=== PATIENT | female | born 1950 | race Caucasian/White ===

== ENCOUNTER 2024-01-22 05:28 | Observation (INO) | payer MEDICARE, MEDICAID ==
[2024-01-20 12:06] LABS: BASOPHILS # (AUTO) 0.1 X10'3 (0-0.2); EOSINOPHILS % (AUTO) 0.2 % (0-6); LYMPHOCYTES # (AUTO) 1.5 X10'3 (1.1-4.8); LYMPHOCYTES % (AUTO) 24.8 % (21-51); MEAN CORPUSCULAR HEMOGLOBIN 30.1 PG (27.0-31.0); MEAN CORPUSCULAR HGB CONC 33.6 g/dL (33.0-36.5); MEAN CORPUSCULAR VOLUME 89.5 FL (78-98); MEAN PLATELET VOLUME 6.9 FL (7.4-10.4); MONOCYTES # (AUTO) 0.5 X10'3 (0-0.9); MONOCYTES % (AUTO) 8.2 % (2-12); NEUTROPHILS # (AUTO) 3.9 X10'3 (1.8-7.7); NEUTROPHILS % (AUTO) 65.8 % (42-75); PRE OP HEMATOCRIT 41.5 % (35.0-45.0); PRE OP PLATELET COUNT 251 X10'3 (140-440); PRE OP WHITE BLOOD COUNT 5.9 10'3 (4.8-10.8); RED BLOOD COUNT 4.64 X10'6 (4.20-5.60); RED CELL DISTRIBUTION WIDTH 13.9 % (11.5-14.5)
[2024-01-20 12:20] LABS: PRE OP INR 0.9 INR; PRE OP PROTIME 10.2 SECONDS (9.0-12.0)
[2024-01-20 12:23] LABS: ALBUMIN 3.8 G/DL (3.4-5.0); ALBUMIN/GLOBULIN RATIO 1.1 (1.1-1.5); ALKALINE PHOSPHATASE 80 IU/L (46-116); BLOOD UREA NITROGEN 17 MG/DL (7-18); BUN/CREATININE RATIO 18.5 (10.0-20.0); CALCIUM 9.5 MG/DL (8.5-10.1); CHLORIDE 104 MMOL/L (99-107); CREATININE 0.92 MG/DL (0.40-0.90); PRE OP ALT 30 U/L (30-65); PRE OP ANION GAP 14 (8-16); PRE OP AST 18 U/L (10-37); PRE OP BILIRUB, TOTAL 0.3 MG/DL (0.0-1.0); PRE OP GLUCOSE 117 MG/DL (70-104); PRE OP POTASSIUM 4.1 MMOL/L (3.4-5.1); PRE OP SODIUM 142 MMOL/L (135-145); TOTAL CARBON DIOXIDE 24.5 MMOL/L (24-32); TOTAL PROTEIN 7.4 G/DL (6.4-8.2); eGFR 60 ML/MIN
[2024-01-22] VITALS (22 sets, daily range): BP systolic 102–152; BP diastolic 42–79; PULSE 71–86; RESP 11–22; TEMP 97.8–98.4; O2SAT 95–100
[~2024-01-22] VITALS: Ht 160 cm; Wt 65.4 kg
[~2024-01-22 05:28] MED LIST: ATOR10TA70 PO; LISI5TAB22 PO; METF-900 PO; MULT-1085 PO; UBID50TA3 PO
[2024-01-22] MEDS: famotidine 20mg tablet PO ONE (05:58)
[2024-01-22] MEDS: ringers solution, lacted 1,000 ML IV SCH ×3 (05:58→17:28)
[2024-01-22] MEDS: vancomycin/NS 1 GM in NS 250 ML IV ONE (05:58)
[2024-01-22] MEDS ORDERED: methylene blue (5mg/ml) 50mg/10ml ampul IV ONE (07:13)
[2024-01-22] MEDS ORDERED: BUPIVAcaine 0.5% inj/PF 30 ML ONE (07:18)
[2024-01-22] MEDS ORDERED: BUPIVACAINE liposomal/PF 13.3 MG/ML vial IM ONE (07:18)
[2024-01-22] MEDS ORDERED: midazolam 1 mg/ML 2ml injection ONE (07:22)
[2024-01-22] MEDS ORDERED: fentaNYL/PF 50MCG/1 ML 2ML syringe ONE (07:22)
[2024-01-22] MEDS ORDERED: acetaminophen 1,000mg/100ml IV 100 ML IV ONE (07:23)
[2024-01-22] MEDS ORDERED: propofol inj 20 ML IV ONE (07:23)
[2024-01-22] MEDS ORDERED: LIDOcaine 2% (20mg/ml) 5ml vial ONE (07:23)
[2024-01-22] MEDS ORDERED: ondansetron/PF 4mg/2ml inj ONE (07:23)
[2024-01-22] MEDS ORDERED: dexamethasone sod phosphate 4mg/ml inj. ONE (07:23)
[2024-01-22] MEDS ORDERED: enalaprilat dihydrate 2.5mg/2ml vial IV PRN (07:30)
[2024-01-22] MEDS ORDERED: morphine 4 MG/ML inj SYRINge IV PRN (07:30)
[2024-01-22] MEDS ORDERED: fentaNYL/PF 50MCG/1 ML 2ML syringe IV PRN ×2 (07:30)
[2024-01-22] MEDS ORDERED: labetalol 20mg/4ml (5mg/ml) syringe IV PRN (07:30)
[2024-01-22] MEDS ORDERED: sevoflurane 250ml liquid IH ONE (07:54)
[2024-01-22] MEDS: NORMAL SALINE IV ONE (08:00)
[2024-01-22] MEDS: GENTAMICIN IV ONE (08:00)
[2024-01-22] MEDS ORDERED: ePHEDrine 50MG/ML INJ. ONE (08:15)
[2024-01-22] MEDS: methylene blue (5mg/ml) 50mg/10ml ampul IV ONE (08:46)
[2024-01-22] MEDS ORDERED: labetalol 20mg/4ml (5mg/ml) syringe IV ONE (08:47)
[2024-01-22] MEDS: morphine 2 MG/ML inj. syringe IV PRN (11:10)
[2024-01-22] MEDS: ondansetron/PF 4mg/2ml inj IV PRN (11:13)
[2024-01-22] MEDS ORDERED: ondansetron/PF 4mg/2ml inj IV PRN (11:45)
[2024-01-22] MEDS: clindamycin-Cleocin 900mg/D5W 50 ML IV SCH (15:50)
[2024-01-22] MEDS ORDERED: gentamicin in saline, iso-osm 80 MG/50 ML premix IV SCH (16:00)
[2024-01-22] MEDS: GENTAMICIN IV SCH (16:25)
[2024-01-22] MEDS: NORMAL SALINE IV SCH (16:25)
[2024-01-22] MEDS ORDERED: glucagon, human recombinant 1mg kit SUBCUT PRN ×2 (18:20→21:55)
[2024-01-22] MEDS ORDERED: DEXTROSE 15 GM of carb/4 tabs (each vial/BOTTLE has 4 tablets) PO PRN ×4 (18:20→21:55)
[2024-01-22] MEDS ORDERED: dextrose 50%-water 50ml dispensing syringe IV PRN ×4 (18:20→21:55)
[2024-01-22] MEDS: insulin Lispro (HumaLOG) vial - multi-dose SQ SCH (21:00)
[2024-01-22] MEDS: insulin glargine (Lantus) pen - multi-dose SQ SCH (22:51)
[2024-01-22] MEDS: lisinopril 5mg tablet PO ONE (23:26)
[2024-01-22] MEDS: HYDROcodone/acetaminophen 5mg/325mg tablet PO PRN (23:26)
[2024-01-23 06:00] VITALS: BP 135/67; PULSE 68; RESP 14; TEMP 97.4; O2SAT 97
[2024-01-23 08:38] LABS: ALANINE AMINOTRANSFERASE 25 U/L (12-78); ALBUMIN 2.8 G/DL (3.4-5.0); ALKALINE PHOSPHATASE 49 IU/L (46-116); ANION GAP 7 (8-16); ASPARTATE AMINO TRANSFERASE 15 U/L (10-37); BASOPHILS % (AUTO) 0.4 % (0-1); BILIRUBIN,TOTAL 0.4 MG/DL (0.1-1.0); BLOOD UREA NITROGEN 14 MG/DL (7-18); BUN/CREATININE RATIO 16.3 (10.0-20.0); CALCIUM 8.3 MG/DL (8.5-10.1); CHLORIDE 107 MMOL/L (99-107); CREATININE 0.86 MG/DL (0.40-0.90); EOSINOPHILS % (AUTO) 0.2 % (0-6); GLUCOSE 121 MG/DL (70-104); HEMATOCRIT 33.2 % (35.0-45.0); LYMPHOCYTES # (AUTO) 1.7 X10'3 (1.1-4.8); LYMPHOCYTES % (AUTO) 18.9 % (21-51); MAGNESIUM 1.7 MG/DL (1.5-2.4); MEAN CORPUSCULAR HEMOGLOBIN 29.6 PG (27.0-31.0); MEAN CORPUSCULAR HGB CONC 33.1 g/dL (33.0-36.5); MEAN CORPUSCULAR VOLUME 89.4 FL (78-98); MEAN PLATELET VOLUME 7.5 FL (7.4-10.4); MONOCYTES # (AUTO) 0.9 X10'3 (0-0.9); MONOCYTES % (AUTO) 10.6 % (2-12); NEUTROPHILS # (AUTO) 6.3 X10'3 (1.8-7.7); NEUTROPHILS % (AUTO) 69.9 % (42-75); PLATELET COUNT 196 X10'3 (140-440); POTASSIUM 3.9 MMOL/L (3.5-5.1); RED BLOOD COUNT 3.72 X10'6 (4.20-5.60); RED CELL DISTRIBUTION WIDTH 13.6 % (11.5-14.5); SODIUM 142 MMOL/L (135-145); TOTAL CARBON DIOXIDE 28.1 MMOL/L (24-32); TOTAL PROTEIN 5.6 G/DL (6.4-8.2); eCRCL 50 ML/MIN; eGFR 65 ML/MIN
[2024-01-23] MEDS: insulin Lispro (HumaLOG) vial - multi-dose SQ SCH (08:48)
[2024-01-23 09:45] VITALS: RESP 14; O2SAT 97
[2024-01-23] MEDS: multivitamins, therapeutics tablet PO SCH (09:58)
[2024-01-23] MEDS: lisinopril 5mg tablet PO SCH (09:58)
[2024-01-23 10:00] VITALS: BP 126/82; PULSE 74; RESP 17; TEMP 97; O2SAT 96
[2024-01-23] MEDS ORDERED: atorvastatin 10mg tablet PO SCH (21:00)
== END 2024-01-23 14:17 | disposition home or self-care (01) ==
LOC: PAS 05:28 → PACU 11:46 → SUR 3N 16:58
PROVIDERS: ADMIT Surgery; ATTEND Surgery
DX: C50.911 Malignant neoplasm of unspecified site of right female breast (principal); I10 Essential (primary) hypertension; E11.9 Type 2 diabetes mellitus without complications; Z79.84 Long term (current) use of oral hypoglycemic drugs; Z88.0 Allergy status to penicillin; Z85.528 Personal history of other malignant neoplasm of kidney; Z79.899 Other long term (current) drug therapy; Z17.0 Estrogen receptor positive status [ER+]; Z90.11 Acquired absence of right breast and nipple
CPT/HCPCS: 19303; 36415; 38525; 38900; 80053; 82948; 83036; 83735; 85025; 85610; 85730; 93005; 96365; 96366; 96367; 96375; C9290; G0378; J0131; J1100; J1580; J1815; J2250; J2270; J2405; J2704; J3010; J3370; J3490; J7120; Q9968; 88307; 88342; A4215; A4618; A6253; A6258; A6449; A7000; C9250; S0020